=== PATIENT | male | born 1950 | race Caucasian/White ===

== ENCOUNTER → 2019-10-08 15:51 | Outpatient (CLI) | payer BC, SELFPAY ==
--- NOTE | 2019-10-08 16:00 | CA_ITS ---
APPROVED REPORT Left Lower Extremity Venous Study for DVT. Director Institution: CT Indications Lower Extremity Edema: Left Injury fell last week, pt has tumors thru out body Vein Imaging CFV (L): compressive, spontaneous, phasic, augmentation SFJ (L): compressive, spontaneous, phasic, augmentation FEM (L): compressive, spontaneous, phasic, augmentation POP (L): compressive, spontaneous, phasic, augmentation DFV (L): compressive, spontaneous, phasic, augmentation PTV (L): compressive, spontaneous, phasic, augmentation GSV (L): compressive, spontaneous, phasic, augmentation SSV (L): compressive, spontaneous, phasic, augmentation Peroneals (L):Not Visualized GAS (L): Not Visualized Findings LLE negative DVT/SVT Vessels compressible TDE Conclusion LLE negative DVT/SVT Vessels compressible TDE Electronically signed by : James Paige MD 10/11/2019 16:08:21
== END ==
PROVIDERS: PCP Family Medicine; Visit Provider Family Medicine
DX: M79.605 Pain in left leg (principal); M79.89 Other specified soft tissue disorders; T14.90XA Injury, unspecified, initial encounter
CPT/HCPCS: 93971